=== PATIENT | female | born 1935 | race Caucasian/White ===

== ENCOUNTER → 2018-12-20 | Outpatient (CLI) | payer MEDICARE, OTHER ==
[~2018-12-20] MED LIST: ALLERGY RELIEF10 MG PO; ASPIRIN 32325 MG/TAB PO; HCTZ 25MG25 MG PO; MULTIPLE VITAMI1 TAB PO; SINGULAIR10 MG PO; SYNTHROID0.1 MG PO; TYLENOL PM EXTR1 TA1 PO
[2018-12-20 16:59] LABS: BASO # 0.1 (0.0-0.2); BASO % 1.7 % (0.0-2.0); EOS # 0.2 (0.0-0.7); EOS % 5.1 % (0-4.0); GRAN # 2.2 (1.4-6.5); GRAN % 46.5 % (42.2-75.2); HEMATOCRIT 44.7 % (37.0-47.0); HEMOGLOBIN 15.1 g/dl (12.5-16.0); LYMPH # 1.6 (1.2-3.4); LYMPH % 34.8 % (20.0-51.0); MEAN CELL VOLUME 88 fl (80.0-100.0); MEAN CORPUSCULAR HEMOGLOBIN 30 pg (27.0-31.0); MEAN CORPUSCULAR HGB CONC 34 g/dl (33.0-37.0); MEAN PLATELET VOLUME 9.6 fl (7.4-10.4); MONO # 0.6 (0.1-0.6); MONO % 11.7 % (1.7-9.3); PLATELET COUNT 264 K/mm3 (130-400); RED BLOOD COUNT 5.09 M/mm3 (4.10-5.30); REDCELL DISTRIBUTION WIDTH-CV 12.6 % (11.5-14.5)
[2018-12-20 17:22] LABS: ERYTHROCYTE SEDIMENTATION RATE 4 mm/hr (0-30)
[2018-12-20 17:34] LABS: TROPONIN-I < 0.012 ng/mL (0.000-0.035)
[2018-12-20 17:45] LABS: THYROID STIMULATING HORMONE 0.436 uIU/mL (0.465-4.680)
== END ==
LOC: ZCOL.LAB 16:52
PROVIDERS: Nurse Practitioner Family
DX: R53.83 Other fatigue (principal)

== ENCOUNTER 2020-06-01 10:50 | Inpatient (IN) | payer MEDICARE, OTHER ==
[~2020-06-01] VITALS: Ht 165.1 cm; Wt 72.0 kg
[~2020-06-01 10:50] MED LIST changes: +SYNTHROID0.075 MG/T PO; -SYNTHROID0.1 MG PO
[2020-06-01 11:33] LABS: BASO % 0.7 % (0.0-2.0); EOS # 0.1 (0.0-0.7); EOS % 2.3 % (0-4.0); GRAN # 3.3 (1.4-6.5); HEMOGLOBIN 14.6 g/dl (12.5-16.0); LYMPH # 1.8 (1.2-3.4); LYMPH % 30.7 % (20.0-51.0); MEAN CELL VOLUME 87 fl (80.0-100.0); MEAN CORPUSCULAR HEMOGLOBIN 30 pg (27.0-31.0); MEAN CORPUSCULAR HGB CONC 34 g/dl (33.0-37.0); MEAN PLATELET VOLUME 9.2 fl (7.4-10.4); MONO # 0.4 (0.1-0.6); MONO % 7.3 % (1.7-9.3); PLATELET COUNT 201 K/mm3 (130-400); RED BLOOD COUNT 4.93 M/mm3 (4.10-5.30); REDCELL DISTRIBUTION WIDTH-CV 12.2 % (11.5-14.5)
[2020-06-01 11:46] LABS: ALBUMIN 3.7 gm/dL (3.5-5.0); BILIRUBIN,TOTAL 0.5 mg/dL (0.0-1.0); CREATININE, serum 0.97 (0.52-1.25); MAGNESIUM 1.9 mg/dL (1.6-2.3); POTASSIUM 3.5 mmol/L (3.4-5.0); TOTAL PROTEIN 6.4 gm/dL (6.4-8.2)
[2020-06-01 12:46] LABS: INR 0.9 (0.8-3.0); PROTHROMBIN TIME 9.9 SECONDS (9.7-12.8)
[2020-06-01 12:49] LABS: PARTIAL THROMBOPLASTIN TIME 27.7 SECONDS (26.0-37.0)
[2020-06-01 13:07] LABS: COLLECTION METHOD CLEAN CATCH
[2020-06-01 13:29] LABS: PH 7 (5-8); SQUAMOUS EPITHELIAL 0-2 /hpf; URINE APPEARANCE Hazy; URINE BACTERIA None Seen /hpf; URINE BILIRUBIN Negative (NEGATIVE); URINE BLOOD Negative (NEGATIVE); URINE COLOR Yellow; URINE GLUCOSE Negative (NEGATIVE); URINE KETONE Trace (NEGATIVE); URINE LEUKOCYTE ESTERASE 1+ (NEGATIVE); URINE NITRATE Negative (NEGATIVE); URINE PROTEIN(semi-quant) Negative (NEGATIVE); URINE UROBILINOGEN Negative (NEGATIVE)
[2020-06-01] MEDS ORDERED: TOPROL XL 50MG50 MG PO (16:52)
[2020-06-01] MEDS ORDERED: FOSAMAX 35MG35 MG PO (16:55)
[2020-06-01] MEDS ORDERED: K-DUR20 MEQ PO (16:56)
[2020-06-01 18:10] VITALS: BP 137/67; PULSE 74; TEMP 97.8
[2020-06-01 19:53] VITALS: BP 137/65; PULSE 78; TEMP 98.2
--- NOTE | 2020-06-01 20:00 | NUR ---
Assessment complete. Patient does not complain of pain. No edema is present. Hand dietary aide are equal and strong and patient is alert and oriented. She mentions having urinary frequency and uses the bedpan. Her labia are slightly reddened but do not cause the patient any discomfort. Pupils are equal in size and reaction. Will continue to monitor.
--- NOTE | 2020-06-01 20:45 | NUR ---
Patient has episode of approx. 30 ml of green, liquid emesis at this time. PRN Zofran administered and N/V subsides. She still complains of "seeing double". Will continue to monitor.
[2020-06-02] VITALS (7 sets, daily range): BP systolic 122–155; BP diastolic 48–65; PULSE 76–89; TEMP 98–99.9
[2020-06-02 06:55] LABS: BASO % 0.3 % (0.0-2.0); EOS % 0.3 % (0-4.0); GRAN # 3.9 (1.4-6.5); GRAN % 67.6 % (42.2-75.2); HEMATOCRIT 37.3 % (37.0-47.0); LYMPH # 1.4 (1.2-3.4); LYMPH % 23.7 % (20.0-51.0); MEAN CELL VOLUME 89 fl (80.0-100.0); MEAN CORPUSCULAR HEMOGLOBIN 30 pg (27.0-31.0); MEAN CORPUSCULAR HGB CONC 33 g/dl (33.0-37.0); MEAN PLATELET VOLUME 9.5 fl (7.4-10.4); MONO # 0.5 (0.1-0.6); MONO % 7.8 % (1.7-9.3); PLATELET COUNT 180 K/mm3 (130-400); RED BLOOD COUNT 4.17 M/mm3 (4.10-5.30); REDCELL DISTRIBUTION WIDTH-CV 12.6 % (11.5-14.5)
[2020-06-02 06:57] LABS: HEMOGLOBIN 12.4 g/dl (12.5-16.0)
[2020-06-02 07:05] LABS: CALCIUM 7.9 mg/dL (8.4-10.2); CHOLESTEROL RISK RATIO 4.3; CREATININE, serum 0.78 (0.52-1.25)
--- NOTE | 2020-06-02 08:38 | NUR ---
PATIENT REPORTS A DULL HEADACHE THIS MORNING. PATIENT REQUESTING CHAPLIAN SERVICES TODAY. PATIENT HAD SMALL EPISODE OF EMESIS AFTER TAKING AM PILLS. PATIENT ABLE TO KEEP MEDICATION DOWN. EMESIS WAS WATER. PATIENT GIVEN PRN ZOFRAN. PATIENT REPORTING DOUBLE VISION AND DIZZINESS WITH THE DOUBLE VISION. PATIENT HAS ALOT OF FAMILY AND HOME CONCERNS. WILL NOTIFY FEED CRUSHER AND FOAM CHARGER. PATIENT CURRENTLY REPORTING SOME NUMBENESS IN HER RIGHT HAND THAT IS INTERMITTENT. WILL CONTINUE TO MONITOR.
--- NOTE | 2020-06-02 10:30 | NUR ---
Initial visit; Patient thanked Test Technician for looking in on her and offering prayer, then making calls to two churches to impart information she wanted them to have. Test Technician wished Luz well and God's blessings.
--- NOTE | 2020-06-02 12:32 | NUR ---
ONE TIME DOSE OF IV VALIUM GIVEN PER DR. WHITING ORDER FOR VERTIGO. WILL CONTINUE TO MONITOR.
--- NOTE | 2020-06-02 13:44 | NUR ---
PATIENT GIVEN PRN DOSE OF PO ANTIVERT PRIOR TO GOING DOWN FOR HER MRI.
--- NOTE | 2020-06-02 14:25 | NUR ---
PATIENT TAKEN TO MRI VIA WHEELCHAIR. WILL WAIT FOR PATIENT ARRIVAL BACK TO ROOM 345.
--- NOTE | 2020-06-02 14:48 | NUR ---
SHAWNEE met with the patient to discuss discharge plan. The patient lives alone in [facility]. She reports independence with ADLs and does not have any DME. The patient's PCP is Dr. Qamar Narvaez and she receives her medications at [facility]. She reports no difficulties obtaining her meds. The patient does not have a DPOA-HC in EMR, but she reports that she should have one completed and that her inspector and clerk, Marcus Peres, would have the documents. She requested that SW contact and notify Marcus Peres of her hospitalization and for him to give her a call on her hospital phone. SW contacted Marcus Peres's office. The switchboard receptionist reports that they have a DPOA-HC for the patient, but is lists her late . The switchboard receptionist reports that she will inform Marcus that the patient requested for him to call her. The patient states that she has four children: [place], Rima (ph#[phone]), Loretta, and Jose (ph#[phone]). She states that she is kind of estranged from Loretta and that Jose had a massive stroke a few years ago. She states that Jose has a caregiver from [phone]. The patient was admitted with concern for a CVA. SHAWNEE discussed post-acute rehab. The patient reports that she would be interested in rehab and would prefer rehab at [facility]. She did not have a second preference at this time. SHAWNEE contacted and faxed a referral to Homa at [facility]. SHAWNEE awaiting their screen. SHAWNEE attempted to contact the patient's daughter, Rima. SW left her a voicemail. SW to continue to follow.
--- NOTE | 2020-06-02 15:22 | NUR ---
PATIENT ARRIVED BACK TO ROOM 345 VIA WHEELCHAIR FROM MRI. MEDICAL CHARGE NURSE CALLED AND NOTIFIED FOR PATIENT COVID SWAB.
--- NOTE | 2020-06-02 17:21 | NUR ---
PATIENT REPORTS THAT SHE IS FEELING NAUSEATED AGAIN. PATIENT GIVEN PRN IV ZOFRAN. WILL CONTINUE TO MONITOR. PATIENT REQUESTING PRN PO DOSE OF TYLENOL ONCE HER STOMACH HAS SETTELED. PATIENT STATES THAT SHE IS UNSURE IF SHE WANTS TO EAT HER DINNER TRAY. CLEAR LIQUIDS OFFERED AND REFUSED. WILL REPORT OFF TO ONCOMING NURSE.
--- NOTE | 2020-06-02 18:45 | NUR ---
Received report from JACQUES Phillips. Pt requested to use the bed espinosa at this time. Pt stated that the bed espinosa is easier for her because she was feeling dizzy. The nurse infomred me that she has been like this throughout the day. Pt was assisted with the bed espinosa. Pt has her call light within reach and her bed is in lowest position.
[2020-06-03 04:25] VITALS: BP 135/57; PULSE 73; TEMP 97.5
--- NOTE | 2020-06-03 06:40 | NUR ---
Pt has slept well during the night. Pt did call to use the bed espinosa a few times. Pt did state to me that she is still having a little of the double vision. She said that she was still seeing two clockes. She also has a headache this morning and she was given 2 Tylenol for pain. Pt is currently in bed and has her call light within reach.
[2020-06-03 07:38] VITALS: BP 142/54; PULSE 77; TEMP 98.4
[2020-06-03 11:46] VITALS: BP 141/65; PULSE 64; TEMP 98.1
--- NOTE | 2020-06-03 12:45 | NUR ---
PATIENT TRANSFERING TO MEDICAL. REPORT GIVEN TO JACQUES DUMONT.
--- NOTE | 2020-06-03 12:55 | NUR ---
Follow-up visit; Patient thanked Payroll And Benefits Analyst for calling her scientology for her yesterday and keeping her in Payroll And Benefits Analyst's prayers. Payroll And Benefits Analyst offered prayer today and will continue to look in on Luz.
--- NOTE | 2020-06-03 13:54 | NUR ---
The patient was tranferred to room 356 on the medical unit. SHAWNEE notified Homa at [facility]. SW to fax updates to [facility] and will continue to follow.
--- NOTE | 2020-06-03 15:48 | NUR ---
REPORT FROM RONNY HANNAVEHICLE SALES PROFESSIONAL. PT TO ROOM 356. AGREE WITH PREVIOUS ASSESSMENTS.
[2020-06-03 16:19] VITALS: BP 180/81; PULSE 71; TEMP 98.2
[2020-06-03 20:00] VITALS: BP 168/72; PULSE 80; TEMP 98.7
--- NOTE | 2020-06-03 20:30 | NUR ---
Initial shift assessment done- states her double vision issue is better tonight- not dizzy,, continues with right side facial droop. Tele on. Denies pain. Up to BSC with one assist
--- NOTE | 2020-06-04 00:10 | NUR ---
Up to bedside commode with assistance- had small stool and urine. Back to bed- nauseated- Zofran given at this time
[2020-06-04 00:57] VITALS: BP 173/75; PULSE 76; TEMP 98.2
--- NOTE | 2020-06-04 04:59 | NUR ---
Let Dr. Kirk know that pt does not have blood draws for this morning and last K+ was 3.0 on Jun 02- ordered BMP and CBC for this morning.
--- NOTE | 2020-06-04 06:30 | NUR ---
Did finally get about 2 hours of sleep last night-- states still has double vision on and off , right facial droop remains--
[2020-06-04 07:17] VITALS: BP 177/90; PULSE 73; TEMP 98.2
[2020-06-04 07:18] LABS: BASO % 0.6 % (0.0-2.0); EOS # 0.2 (0.0-0.7); EOS % 3.2 % (0-4.0); GRAN # 2.9 (1.4-6.5); GRAN % 56.9 % (42.2-75.2); HEMOGLOBIN 12.7 g/dl (12.5-16.0); LYMPH # 1.5 (1.2-3.4); LYMPH % 30.2 % (20.0-51.0); MEAN CELL VOLUME 88 fl (80.0-100.0); MEAN CORPUSCULAR HEMOGLOBIN 30 pg (27.0-31.0); MEAN CORPUSCULAR HGB CONC 35 g/dl (33.0-37.0); MEAN PLATELET VOLUME 9.5 fl (7.4-10.4); MONO # 0.4 (0.1-0.6); MONO % 8.3 % (1.7-9.3); PLATELET COUNT 179 K/mm3 (130-400); RED BLOOD COUNT 4.19 M/mm3 (4.10-5.30); REDCELL DISTRIBUTION WIDTH-CV 12.3 % (11.5-14.5)
[2020-06-04 07:31] LABS: HEMATOCRIT 36.7 % (37.0-47.0)
[2020-06-04 07:36] LABS: CALCIUM 8.1 mg/dL (8.4-10.2); CREATININE, serum 0.72 (0.52-1.25)
[2020-06-04 07:39] LABS: POTASSIUM 2.8 mmol/L (3.4-5.0)
--- NOTE | 2020-06-04 10:37 | NUR ---
Field Technical Support Consultant faxed updates to Homa at [facility].
--- NOTE | 2020-06-04 10:52 | NUR ---
First visit from the braid folder. No needs right now.
[2020-06-04] MEDS ORDERED: PLAVIX 75MG TAB75 MG PO (11:07)
[2020-06-04] MEDS ORDERED: LIPITOR 10MG10 MG PO (11:08)
--- NOTE | 2020-06-04 11:10 | NUR ---
Meter/Relay Technician attended clinical rounds with the team. After rounds, SW presented the IM form. The patient understood and gave SW permission to sign the form on her behalf. A copy was provided to the patient and original was placed in the chart.
[2020-06-04] MEDS ORDERED: ZOFRAN ODT4 MG PO (11:12)
[2020-06-04 12:38] VITALS: BP 186/77; PULSE 76; TEMP 98.7
[2020-06-04 13:11] VITALS: BP 186/77; PULSE 76; TEMP 98.7
--- NOTE | 2020-06-04 15:00 | NUR ---
The patient is to discharge today, 06/04 to [facility] for a chcf then back to independent living. The patient to be transported at 1500. SHAWNEE faxed discharge orders to Homa at [facility]. There are no additional needs at this time.
--- NOTE | 2020-06-04 15:00 | NUR ---
patient is transferring to [facility], IV and tele removed, leaving with transportation personel at this time
== END 2020-06-04 15:56 | DRG 65 ==
LOC: COL.ER 10:50 → SURG 14:01 → MEDICAL 06-03 12:45
PROVIDERS: Emergency Medicine; Student in an Organized Health Care Education/Training Program; ADMIT Hospitalist
DX: I63.89 Other cerebral infarction (principal); N39.0 Urinary tract infection, site not specified; G81.91 Hemiplegia, unspecified affecting right dominant side; R29.703 NIHSS score 3; I10 Essential (primary) hypertension; E87.6 Hypokalemia; E03.9 Hypothyroidism, unspecified; B96.89 Other specified bacterial agents as the cause of diseases classified elsewhere; G47.00 Insomnia, unspecified; H81.4 Vertigo of central origin; H53.2 Diplopia; Z90.49 Acquired absence of other specified parts of digestive tract; Z90.89 Acquired absence of other organs; Z90.13 Acquired absence of bilateral breasts and nipples
CPT/HCPCS: 99222-AI; 99233-AI; 99239; A9585; J0696; J1650; J2060; J2405; J3360; J7030; Q9967

== ENCOUNTER → 2022-07-21 | Outpatient (CLI) | payer MEDICARE, OTHER ==
[~2022-07-21] MED LIST changes: +FOSAMAX 35MG35 MG PO; +K-DUR20 MEQ PO; +LIPITOR 10MG10 MG PO; +PLAVIX 75MG TAB75 MG PO; +TOPROL XL 50MG50 MG PO; +ZOFRAN ODT4 MG PO
== END ==
LOC: COL.VAS 08:38
DX: I10 Essential (primary) hypertension (principal); R06.02 Shortness of breath; R60.0 Localized edema

== ENCOUNTER → 2022-12-22 | Outpatient (CLI) | payer MEDICARE, OTHER | LOC: COL.RAD 10:09 | DX: R31.0 Gross hematuria (principal) ==